=== PATIENT | female | born 1960 | race Caucasian/White ===

== ENCOUNTER → 2019-01-17 | Outpatient (CLI) | payer BC ==
--- NOTE | 2019-01-17 15:26 | REP ---
Clinical: Centrilobular emphysema with chest pain. Technique: PA and lateral. Comparison: None. Findings: The mediastinum and cardiac silhouette are relatively normal. Lung aiken demonstrate diffuse chronic changes consistent with emphysematous disease and bibasilar scarring. Blunting of the bilateral diaphragmatic surfaces (right greater than left) likely represents chronic change although small right pleural effusion cannot be excluded. No pneumothorax. Skeletal structures intact. Impression: Advanced COPD and emphysematous changes. Chronic pleural changes along the bilateral lung bases versus small right pleural effusion. Electronically Signed by Davon Mark MD 01/17/2019 03:18 P
== END ==
LOC: M SMT 15:07
PROVIDERS: ATTEND Internal Medicine Pulmonary Disease
DX: J43.2 Centrilobular emphysema (principal)

== ENCOUNTER → 2021-09-02 | Outpatient (CLI) | payer BC ==
--- NOTE | 2021-09-02 14:01 | REP ---
INDICATION: NICOTINE DEPENDENCE COMPARISON: Outside examination dated 05/23/2021 TECHNIQUE: Axial noncontrast images from the thoracic inlet to the upper abdomen using low-dose lung screening technique (LDCT). FINDINGS: Advanced COPD/emphysematous changes with scattered, primarily right apical and bibasilar scarring essentially unchanged. No acute consolidation, suspicious nodule or mass identified. No effusion. No pneumothorax. Associated bronchiectasis noted. Mediastinum demonstrates relatively stable appearance with atherosclerotic changes to the thoracic aorta and coronary arteries again noted. IMPRESSION: 1. Lung rads category 1-S. Advanced COPD/emphysematous changes with scattered scarring and bronchiectasis. 2. Management recommendations include annual low-dose CT surveillance. Symptomatic changes may warrant earlier evaluation. <Electronically signed by Davon Mark > 09/02/21 [id number]
== END ==
LOC: M RAD 12:25
PROVIDERS: ATTEND Internal Medicine Pulmonary Disease
DX: Z12.2 Encounter for screening for malignant neoplasm of respiratory organs (principal); F17.218 Nicotine dependence, cigarettes, with other nicotine-induced disorders; J47.9 Bronchiectasis, uncomplicated

== ENCOUNTER → 2021-09-22 | Outpatient (REF) | payer BC | LOC: M LAB REF 16:03 | PROVIDERS: ATTEND Otolaryngology | DX: H65.492 Other chronic nonsuppurative otitis media, left ear (principal) ==